=== PATIENT | male | born 2000 | race Caucasian/White ===

== ENCOUNTER 2023-10-23 19:16 | Emergency (ER) | payer OTHER ==
[~2023-10-23] VITALS: Ht 190.5 cm; Wt 162.0 kg
[2023-10-23 19:21] VITALS: BP 132/74; PULSE 92; RESP 18; TEMP 98.4
== END 2023-10-23 19:35 | disposition left against medical advice (07) ==
LOC: EMS 19:17
DX: Z53.21 Procedure and treatment not carried out due to patient leaving prior to being seen by health care provider (principal)